=== PATIENT | female | born 1975 | race Two or more races ===

== ENCOUNTER → 2024-06-16 | Outpatient (CLI) | payer MEDICAID, SELFPAY | END | disposition home or self-care (01) | LOC: SWHD 10:23 | PROVIDERS: PCP Family Medicine; Referring Provider Family Medicine; Visit Provider Student in an Organized Health Care Education/Training Program | DX: L97.411 Non-pressure chronic ulcer of right heel and midfoot limited to breakdown of skin (principal); L97.521 Non-pressure chronic ulcer of other part of left foot limited to breakdown of skin; R21 Rash and other nonspecific skin eruption; I10 Essential (primary) hypertension; E11.40 Type 2 diabetes mellitus with diabetic neuropathy, unspecified; Z79.4 Long term (current) use of insulin; Z79.84 Long term (current) use of oral hypoglycemic drugs; D64.9 Anemia, unspecified | CPT/HCPCS: 99214; A9270; G0463 ==

== ENCOUNTER → 2024-07-13 | Outpatient (CLI) | payer MEDICAID, SELFPAY | END | disposition home or self-care (01) | PROVIDERS: PCP Family Medicine; Referring Provider Family Medicine; Visit Provider Student in an Organized Health Care Education/Training Program | DX: L97.521 Non-pressure chronic ulcer of other part of left foot limited to breakdown of skin (principal); R21 Rash and other nonspecific skin eruption; I10 Essential (primary) hypertension; E11.40 Type 2 diabetes mellitus with diabetic neuropathy, unspecified; Z79.84 Long term (current) use of oral hypoglycemic drugs; Z79.4 Long term (current) use of insulin; D64.9 Anemia, unspecified | CPT/HCPCS: 99213; G0463 ==

== ENCOUNTER 2024-08-01 23:55 | Emergency (ER) | payer MEDICAID, SELFPAY ==
--- NOTE | 2024-08-02 00:09 | XR_ITS ---
Examination: PA lateral chest 2 views TECHNIQUE: Upright PA lateral chest 2 views Exam date and time: August 02, 2024 0016 hours Comparison November 04, 2023 INDICATIONS: Onset chest pain today. FINDINGS: Normal heart size. No pneumonia or pulmonary edema. Intact osseous structures IMPRESSION: No active disease
[2024-08-02 00:12] VITALS: BP 160/103; PULSE 72; RESP 20; TEMP 36.9; O2SAT 97; BMI 39.4
--- NOTE | 2024-08-02 00:13 | PD.EDRME ---
Rapid Medical Screening Exam RME Arrival date/time: 08/01/24 23:55 Chief Complaint: Chest Pain Vital signs: Vital Signs Temperature 98.5 F 08/02/24 00:12 Pulse Rate 72 08/02/24 00:12 Respiratory Rate 20 08/02/24 00:12 Blood Pressure 160/103 H 08/02/24 00:12 Pulse Oximetry (%) 97 08/02/24 00:12 Oxygen Delivery Method Room Air 08/02/24 00:12 RME Narrative: 49-year-old female presents with complaint of substernal chest pain onset yesterday. Describes the pain as pressure. Not exacerbated with movements or deep breaths. I have greeted and performed a focused initial assessment of this patient. A comprehensive ED assessment and evaluation of the patient, analysis of all test results, and completion of the medical decision making process will be conducted by additional ED providers.
[2024-08-02 01:28] LABS: Alanine Aminotransferase 12 U/L (10-49); Albumin, Serum 4.2 gm/dL (3.5-5.0); Albumin/Globulin Ratio 1.2 (1.2-2.2); Alkaline Phosphatase 93 U/L (46-116); Anion Gap 8 (7-16); Aspartate Amino Transferase 17 U/L (0-34); BUN/Creatinine Ratio 19 Ratio (12-20); Basophils % (Auto) 1 % (0-2.5); Bilirubin,Total 0.4 mg/dL (0.3-1.2); Blood Urea Nitrogen 15 mg/dL (9-23); Calcium 9.5 mg/dL (8.3-10.6); Calcium (Corrected) 9.5 mg/dL (8.5-10.1); Carbon Dioxide 25.1 mMol/L (20.0-31.0); Chloride 106 mMol/L (98-107); Creatinine (Component) 0.8 mg/dL (0.6-1.3); Eosinophils # (Auto) 0.2 Thou/mm3 (0.0-0.5); Eosinophils % (Auto) 2 % (0-10); Estimated Creatinine Clearance 108.6 mL/min (>60); Globulin 3.4 gm/dL (2.3-3.5); Glucose 127 mg/dL (74-106); Hemoglobin 12.9 g/dL (12.0-16.0); Immature Granulocytes % (Auto) 1 % (0-0); Immature Granulocytes Auto 0.04 Thou/mm3 (0.00-0.00); Lymphocytes # (Auto) 2.4 Thou/mm3 (1.0-4.8); Lymphocytes % (Auto) 33 % (10-50); Mean Corpuscular HGB Conc 33.1 g/dl (31.0-37.0); Mean Corpuscular Volume 85 fL (80-100); Monocytes # (Auto) 0.5 Thou/mm3 (0.0-0.8); Monocytes % (Auto) 7 % (0-12); Neutrophils # (Auto) 4.1 Thou/mm3 (1.8-7.7); Neutrophils % (Auto) 57 % (37-80); Nucleated Red Blood Cell % 0 /100 WBC (0); Osmolality,Calculated 280 (275-295); Platelet Count 226 Thou/mm3 (140-440); Potassium 3.7 mMol/L (3.4-5.1); RDW Standard Deviation 41.6 fL (36.4-46.3); Red Blood Count 4.61 Miln/mm3 (4.00-5.20); Sodium 139 mMol/L (136-145); Total Protein 7.6 gm/dL (5.7-8.2); Troponin I < 0.020 ng/mL (0.0-0.045); White Blood Count 7.1 Thou/mm3 (3.6-11.0); eGFR > 60 See Note
[2024-08-02] MEDS: HYDROcodone/APAP 5/325 TABLET 1 TAB PO (04:40)
[2024-08-02 06:13] VITALS: BP 145/84; PULSE 71; RESP 18; TEMP 36.8; O2SAT 97
[2024-08-02 06:50] LABS: Troponin I < 0.020 ng/mL (0.0-0.045)
--- NOTE | 2024-08-02 06:54 | EDNOTE_ITS ---
ED Chest Pain RME/HPI General Chief Complaint: Chest Pain Stated Complaint: Chest/Back Pain since yesterday Time Seen by Provider: 08/02/24 04:25 Arrival date/time: 08/01/24 23:55 RME / HPI RME / HPI narrative: 49-year-old female presents with complaint of substernal chest pain onset yesterday. Describes the pain as pressure. Not exacerbated with movements or deep breaths. I have greeted and performed a focused initial assessment of this patient. A comprehensive ED assessment and evaluation of the patient, analysis of all test results, and completion of the medical decision making process will be conducted by additional ED providers. This section includes all my notes and documentations, including HPI, PE, and ED course.? Rashad Bass MD HPI: 49 year old female with history of hypertension, hyperlipidemia presents to the ED for complaint of chest pain beginning 2 days ago. Described as aching in sensation that is located most to the center of her chest that radiates to her back, rating 7/10 while in the ED. With about a week of worsening cough, productive cough, purulent sputum, and dyspnea. States she consulted with her PCP who diagnosed her with a chest infection and prescribed Azithromycin yesterday which she has yet to start. Denies fevers, chills, abdominal pain, or n/v. No other complaints. ROS: All negative except as documented in HPI. Physical Exam: General:? Alert and oriented.?? Eyes:? Conjunctivae and lids clear.?? ENT:? No nasal congestion.?? Neck:? Supple.?? Lungs:? No respiratory distress.??Good air movement.? No rhonchi, wheezing, rales.? Heart:? RRR. Chest: Palpation of the sternum area reproduces her pain. Legs:? No clubbing, cyanosis, edema.? Skin:? Warm and dry.?? Neuro:? Alert and oriented X 3.?? I reviewed all diagnostic test results. My interpretation of the EKG is?sinus rhythm with no acute ST?T changes. My interpretation of the chest x-ray is increased bronchial markings, official radiology report is pending. Blood tests unremarkable, including negative troponin X 2. At this point, diagnoses include?chest wall pain. Recommended supportive care for her chest wall pain and Zithromax for her bronchitis and more outpatient cardiac workup. Based on my best medical judgment, made decision no further evaluation or treatment indicated at this time.? Patient understands and agrees to the discharge instructions customized and printed, see below. Discharge instructions from Dr. Bass: 1. After extensive evaluation, there is no life-threatening condition.? Such as heart attack or pneumothorax (collapsed lung). 2. Your pain is originating from the chest wall and not from an internal organ--from your bronchitis diagnosed by outside doctor a couple of days ago..? The chest wall has many joints and muscles between the ribs, so sprains and stra ins are common.??Take Zithromax and cough medication as prescribed by the outside doctor. 3. Apply ice or heat if helpful.? Tylenol with codeine for severe pain. 4. See a private doctor on 08/04/2024 for recheck. To make sure there is no serious underlying heart condition, ask to help you get more tests for your heart that cannot be done here in the ER.? Such as Holter Monitor (cardiac monitoring at home from a day to even a month), heart stress test (on treadmill or with medication), echocardiogram (imaging of your heart structures), heart catherization (checking for blockages in your heart ar teries), and a referral to see a Hand Tacker.? 5. Seek immediate medical care with worsening or with any concerns.?? Rashad Bass MD Related Data Home Medications ?Medication ?Instructions ?Recorded ?Confirmed ergocalciferol (vitamin D2) 1,250 1,250 mcg PO QWEEK 04/28/20 04/28/20 mcg (50,000 unit) capsule (Vitamin D2) ferrous sulfate 325 mg (65 mg 325 mg PO QDAY 04/28/20 04/28/20 iron) tablet (Iron (ferrous sulfate)) Previous Rx's ?Medication ?Instructions ?Recorded aspirin 81 mg tablet,delayed 81 mg PO QDAY #30 tabs 04/29/20 release (Adult Aspirin Regimen) atorvastatin 40 mg tablet 40 mg PO QPM #30 tabs 04/29/20 fenofibrate 160 mg tablet 160 mg PO QDAY #30 tabs 04/29/20 lisinopril 20 mg tablet 40 mg (2 x 20 mg) PO QDAY #0 tabs 04/29/20 lisinopril 40 mg tablet 40 mg PO QDAY #30 tabs 04/29/20 dexamethasone 6 mg tablet 6 mg PO QDAY #7 tabs 10/11/20 (Decadron) albuterol sulfate 90 mcg/actuation 1 inh inhalation QID PRN shortness 12/13/21 aerosol inhaler (ProAir HFA) of breath or wheezing #8.5 grams benzonatate 200 mg capsule 200 mg PO BID PRN cough #30 caps 06/27/22 ibuprofen 800 mg tablet 800 mg PO TID PRN pain #30 tabs 11/04/23 acetaminophen 300 mg-codeine 30 mg 2 tab PO TID PRN pain #20 tabs 08/02/24 tablet Allergies Allergy/AdvReac Type Severity Reaction Status Date / Time No Known Allergies Allergy Verified 01/31/22 12:00 Review of Systems Review of Systems Systems Reviewed: All systems reviewed, normal except as documented Past Medical History Past Medical History CARDIAC: Positive Hypercholesterolemia and Hypertension HEMATOLOGIC: Positive Blood Disorders and Anemia OTHER HISTORY: Positive Chicken Pox Family History FAMILY HISTORY: Positive Family Cardiac Disorders and Family Cancer; Negative Family Neurologic Problems Surgical History SURGICAL: Positive Abdominal Surgery; Negative Cardiac Surgery, Endocrine Surgery, Ear Surgery, Nephrectomy, Transurethral Resection, Joint Replacement, Neurologic Surgery, Brain Shunt, Mastectomy, Lumpectomy, Hysterectomy, Tubal Ligation, Section or Vasectomy Social History SMOKING STATUS: Never smoker ED Exam Narrative Physical exam: As noted in HPI Course Course Course Narrative: chest xray ordered to help determine etiology of chest pain. Quality Measures none Orders Category Date Time Status EKG (ED ONLY) *Do not use* NOW Care 08/01/24 23:58 Completed EKG (ED Only) Stat Exams 08/01/24 23:58 Ordered XR chest 2V Stat Exams 08/02/24 00:09 Taken BNP [B-Type Natriuretic Peptide] Stat Lab 08/02/24 06:05 Received CBC Stat Lab 08/02/24 00:47 Completed CMP [Comprehensive Metabolic Panel] Stat Lab 08/02/24 00:47 Completed Troponin I Stat Lab 08/02/24 00:47 Completed Troponin I Stat Lab 08/02/24 06:05 Completed HYDROcodone*/APAP 5/325 [[place] 5/325] Med 08/02/24 04:32 Discontinued 1 tab PO X1 ONE Vital Signs Vital signs: Vital Signs Temperature 98.5 F 08/02/24 00:12 Pulse Rate 72 08/02/24 00:12 Respiratory Rate 20 08/02/24 00:12 Blood Pressure 160/103 H 08/02/24 00:12 Pulse Oximetry (%) 97 08/02/24 00:12 Oxygen Delivery Method Room Air 08/02/24 00:12 Pulse ox is 97% on room air which is adequate. Chest Pain MDM Narrative MDM Narrative:: Hannah Flores am scribing for and in the presence of Dr. Bass. Patient data External records reviewed:: [facility] previous records (I reviewed ED visit on 11/03/2018 ) Clinical information provided by:: patient and family Social determinants that could affect healthcare access:: none Patient has the following chronic illnesses:: HTN, HLD How is presenting disease/condition affected by chronic disease/condition?: uneffected by Evaluation data The following diagnostics were reviewed and interpreted by me:: lab results, radiology exam(s) and EKG tracing(s) (My interpretation of the EKG is: Sinus rhythm with nonspecific ST-T changes. Rashad Bass MD) Lab and/or radiology exams considered but not ordered:: None Interpretation Summary: Chest wall pain Medications / Prescriptions Medications or Prescriptions considered but not ordered:: None Medication administrations:: Medication Administration History Discontinued Medications Hydrocodone Bitart/Acetaminophen (Hydrocodone/[place] 5/325 Tablet) 1 tab PO X1 ONE Stop: 08/02/24 04:33 Last Admin: 08/02/24 04:40 Dose: 1 tab Documented By: GB Patient given [place] Consultations Consultation(s) initiated? (list below): No Diagnosis Chest Pain Differential Diagnosis: fracture of rib, pneumothorax, stable angina, unstable angina pectoris, atypical chest pain, st elevation myocardial infarction, costochondritis, chest pain and biliary colic Most likely diagnosis given after review of the tests above:: Chest wall pain Admission Indicated Admission indicated?: not indicated Explain why admission is indicated or not indicated:: Does not meet admission criteria Admission Request Was there a request for admission?: No Disposition Plan Disposition Plan: Discharge Discharge Attestation Discharge Attestation: The patient and all family members were given an opportunity to ask questions and understood the discharge instructions. Discharge instructions specifically effects, indications for sooner follow up or return to the emergency department, and the expected course of current diagnosis. Patient condition: Stable Discharge Plan Plan Patient Disposition: HOME (Self Care) Prescriptions/Referrals Prescriptions/Med Rec: New acetaminophen-codeine 300-30 mg tablet 2 tab PO TID MDD 6 PRN (Reason: pain) Qty: 20 0RF No Action ferrous sulfate [Iron (ferrous sulfate)] 325 mg (65 mg iron) Tablet 325 mg PO QDAY ergocalciferol (vitamin D2) [Vitamin D2] 1,250 mcg (50,000 unit) Capsule 1,250 mcg PO QWEEK aspirin [Adult Aspirin Regimen] 81 mg tablet,delayed release (DR/EC) 81 mg PO QDAY Qty: 30 0RF lisinopril 40 mg tablet 40 mg PO QDAY Qty: 30 0RF Rx Instructions: New (higher) dose. fenofibrate 160 mg tablet 160 mg PO QDAY Qty: 30 0RF atorvastatin 40 mg tablet 40 mg PO QPM Qty: 30 0RF lisinopril 20 mg Tablet 40 mg PO QDAY Qty: 0 0RF dexamethasone [Decadron] 6 mg tablet 6 mg PO QDAY Qty: 7 0RF albuterol sulfate [ProAir HFA] 90 mcg/actuation HFA aerosol inhaler 1 inh inhalation QID PRN (Reason: shortness of breath or wheezing) Qty: 8.5 0RF benzonatate 200 mg capsule 200 mg PO BID PRN (Reason: cough) Qty: 30 0RF ibuprofen 800 mg tablet 800 mg PO TID PRN (Reason: pain) Qty: 30 0RF Referrals: Viet King MD [Primary Care Provider] - In 1 week Problem List Clinical Impression: Chest wall pain Patient/Caregiver Discharge Instructions Discharge Activity: activity as tolerated Education Materials: ED Chest Wall Pain, Costochondritis Additional Instructions: Discharge instructions from Dr. Bass: 1. After extensive evaluation, there is no life-threatening condition.? Such as heart attack or pneumothorax (collapsed lung). 2. Your pain is originating from the chest wall and not from an internal organ--from your bronchitis diagnosed by outside doctor a couple of days ago..? The chest wall has many joints and muscles between the ribs, so sprains and strains are common.??Take Zithromax and cough medication as prescribed by the outside doctor. 3. Apply ice or heat if helpful.? Tylenol with codeine for severe pain. 4. See a private doctor on 08/04/2024 for recheck. To make sure there is no serious underlying heart condition, ask to help you get more tests for your heart that cannot be done here in the ER.? Such as Holter Monitor (cardiac monitoring at home from a day to even a month), heart stress test (on treadmill or with medication), echocardiogram (imaging of your heart structures), heart catherization (checking for blockages in your heart arteries), and a referral to see a Hand Tacker.? 5. Seek immediate medical care with worsening or with any concerns.?? Print Language: Japanese Stand Alone Forms: [facility] Award Info., Patient Portal Info Letter
[2024-08-02 08:36] LABS: B-Type Natriuretic Peptide < 20 pg/mL (0-100)
== END 2024-08-02 07:15 | disposition home or self-care (01) ==
PROVIDERS: Physician Assistant; Emergency Provider Emergency Medicine; PCP Family Medicine
DX: R07.89 Other chest pain (principal); E78.5 Hyperlipidemia, unspecified; I10 Essential (primary) hypertension
CPT/HCPCS: 36415; 71046; 80053; 83880; 84484; 85025; 93005; 99283; A9270

== ENCOUNTER → 2024-09-21 | Outpatient (CLI) | payer MEDICAID, SELFPAY ==
--- NOTE | 2024-09-21 16:10 | XR_ITS ---
Examination: Knee, right , 3 views Technique: Knee AP, lateral, oblique 3 views Date and time of exam: September 21, 2024 1615 hrs. Indications: Right knee pain beginning one month ago. Findings: Advanced narrowing [id number] lateral joint space Significant osteoarthritis medial patellofemoral joints Impression: Advanced tricompartment osteoarthritis No fracture Small knee effusion
== END | disposition home or self-care (01) ==
PROVIDERS: PCP Family Medicine; Referring Provider Family Medicine; Visit Provider Family Medicine
DX: M17.11 Unilateral primary osteoarthritis, right knee (principal); M25.461 Effusion, right knee
CPT/HCPCS: 73562

== ENCOUNTER → 2024-10-28 | Outpatient (CLI) | payer MEDICAID, SELFPAY ==
--- NOTE | 2024-10-28 12:00 | XR_ITS ---
Exam: MRI knee without contrast, right Date and time of exam: October 28, 2024 at 1214 hours INDICATIONS: Anterior knee pain and difficulty walking instability 6 months Technique: Multiple axial, coronal, and sagittal sections on the knee have been obtained. T2-Weighted sagittal, fat-suppressed images, TR 3,500, TE 62, T2 weighted coronal fat-saturated images, TR 3,500, TE 62 Proton density sagittal sections, TR 1800, TE 31. T-1 weighted coronal images, TR 524, TE 13.0 Findings: Medial meniscus anterior horn intact. Medial meniscus, body meniscocapsular separation. Posterior horn medial meniscus tiny peripheral horizontal linear tears. Lateral meniscus anterior horn replaced by isointense signal Lateral meniscus, body extruded from the joint space with complex tear including horizontal component communicating inferior articular surface Posterior horn lateral meniscus oblique linear tear communicating inferior articular surface Anterior cruciate ligament mild sprain Posterior cruciate ligament appears intact. Knee effusion is moderate. Quadriceps and patellar tendons appear intact. There is no evidence of tendinosis. Inflammatory change or fracture of Hoffa's fat pad is not seen. Medial patellar facet demonstrates severe thinning. Lateral patellar facet cartilage demonstrates severe thinning. Trochlear cartilage demonstrates severe thinning. Marrow signal adequate. Medial collateral ligament appears intact. Illiotibial band and fibular collateral ligament are intact. Biceps femoris tendons appear intact. Medial femoral condylar articular cartilage demonstrates moderate thinning. Lateral femoral condylar articular cartilage demonstratessevere thinning. Tibial plateau cartilage demonstrates severe lateral thinning. Impression: Extensive lateral meniscus tears Meniscocapsular separation body of the medial meniscus Mild sprain anterior cruciate ligament
== END | disposition home or self-care (01) ==
LOC: SMRI 11:24
PROVIDERS: PCP Family Medicine; Referring Provider Family Medicine; Visit Provider Family Medicine
DX: S83.281A Other tear of lateral meniscus, current injury, right knee, initial encounter (principal); S83.194A Other dislocation of right knee, initial encounter; S83.511A Sprain of anterior cruciate ligament of right knee, initial encounter; X58.XXXA Exposure to other specified factors, initial encounter
CPT/HCPCS: 73721

== ENCOUNTER → 2025-01-18 | Outpatient (CLI) | payer MEDICAID, SELFPAY | END | disposition home or self-care (01) | PROVIDERS: PCP Family Medicine; Referring Provider Family Medicine; Visit Provider Student in an Organized Health Care Education/Training Program | DX: S91.302A Unspecified open wound, left foot, initial encounter (principal); S91.301A Unspecified open wound, right foot, initial encounter; X58.XXXA Exposure to other specified factors, initial encounter; L30.9 Dermatitis, unspecified; D69.6 Thrombocytopenia, unspecified; I10 Essential (primary) hypertension; E11.40 Type 2 diabetes mellitus with diabetic neuropathy, unspecified; Z79.84 Long term (current) use of oral hypoglycemic drugs; E66.9 Obesity, unspecified | CPT/HCPCS: 99214; G0463 ==

== ENCOUNTER → 2025-03-01 | Outpatient (CLI) | payer MEDICAID, SELFPAY | END | disposition home or self-care (01) | PROVIDERS: PCP Family Medicine; Referring Provider Family Medicine; Visit Provider Student in an Organized Health Care Education/Training Program | DX: S91.302A Unspecified open wound, left foot, initial encounter (principal); S91.301A Unspecified open wound, right foot, initial encounter; X58.XXXA Exposure to other specified factors, initial encounter; I10 Essential (primary) hypertension; E11.40 Type 2 diabetes mellitus with diabetic neuropathy, unspecified; Z79.84 Long term (current) use of oral hypoglycemic drugs; E66.9 Obesity, unspecified | CPT/HCPCS: 99213; G0463 ==